=== PATIENT | female | born 1950 | race Caucasian/White ===

== ENCOUNTER 2016-06-27 14:16 | Inpatient (IN) | payer OTHER ==
[~2016-06-27] VITALS: Ht 165.1 cm; Wt 85.3 kg
--- NOTE | ~2016-06-27 | CON ---
[place], [place] REPORT OF CONSULTATION NAME: BRITTANIE WADE UNIT #: [id number] ROOM: 422 DOCTOR: WICHO KUMAR MD BIRTHDATE: [birth year] DOS: GASTROENDOSCOPIC REPORT HISTORY OF PRESENT ILLNESS: A 65-year-old patient, who was presented with multiple medical problems, among which was abdominal pain, left lower quadrant pain, requiring pain medication. She is concerned that she may have a history of Crohn's disease since she has been loosely told that she have Crohn's disease in the past. The patient has been on ciprofloxacin and pain medication, Dilaudid. Urine study has been negative. CT scan of the abdomen has shown diverticulosis and liver cyst. Labs on records have been reviewed. Her electrolytes have been balanced. CBC repeatedly white blood cell has been normal, H and H of 10 and 31. She is status post recent colonoscopy. The labs reviewed, left nephrolithiasis. PAST MEDICAL HISTORY: Noted sigmoid diverticulosis is known, liver cyst known. REVIEW OF SYSTEMS: No hematemesis, no hematochezia, no shortness of breath, no chest pain. No nausea, vomiting, diarrhea today. PHYSICAL EXAMINATION: VITAL SIGNS: Stable. HEENT: Head normocephalic, nontraumatic. Mouth and buccal mucosa benign. NECK: Supple, no thyromegaly. CHEST: Symmetric anatomy, equal expansion. HEART: Normal sinus rhythm, no gallop, no murmur. ABDOMEN: Soft. No hepato-organomegaly. Bowel sounds present. EXTREMITIES: No cyanosis, no pedal edema. NEUROLOGIC: Alert, oriented to time, place, person. IMPRESSION: Diverticulosis, abdominal pain, status post antibiotic therapy. No Crohn's colitis has been discovered on CT scan nor on colonoscopic assessment. PLAN AND DISCUSSION: Hyoscyamine 0.125 mg 1 every day, possibility of irritable bowel syndrome in presentation. She is eating regular diet and no adverse consequences as a result of such. Hopefully, the antispasmodic is going to help her along. Other adjunctive diagnosis as outlined above. Thank you very much indeed. [place], [place] REPORT OF CONSULTATION NAME: BRITTANIE WADE UNIT #: [id number] ROOM: 422 DOCTOR: WICHO KUMAR MD BIRTHDATE: [birth year] WICHO KUMAR MD CM:CONSTR:REPORT OF CONSULTATION 1258 07/01/16 0031 interface
--- NOTE | ~2016-06-27 | CON ---
[place], [place] REPORT OF CONSULTATION NAME: BRITTANIE WADE UNIT #: [id number] ROOM: 422 DOCTOR: JOSÉ HOGUEWICHO BIRTHDATE: [birth year] DOS: 06/29/2016 HISTORY OF PRESENT ILLNESS: A 65-year-old patient who has presented with ambiguous abdominal pain. Apparently, she has been investigated by Dr. Child, EGD and colonoscopy, hiatal hernia and gastritis has been noticed. Colonoscopy has not shown any evidence of Crohn's disease. Apparently, she has had a label of Crohn's on her and she used to be on Lialda. She tells me she has not been on the medication for the past 4 years. Routinely she has a bowel movement or 2 until this last week or so that she has not had a well feeling about her bowel movements. She is telling me that they are not as formed as they used to be. She had a panel of blood work done in [place] and white blood cell was 7, H and H of 12 and 37, differential essentially unremarkable borderline. Comprehensive metabolic panel, GFR greater than 60. Liver function tests normal. Amylase and lipase within normal limits. CT scan of the abdomen and pelvis was done. Sigmoid diverticulosis, cyst of the liver, unchanged density, adrenal gland adenoma, left nephrolithiasis, all has been recognized. H and H of 10 and 31. Reviewed CPK-MB enzymes, labs on records and H and H was reassessed. Hemoglobin A1c normal. PAST MEDICAL HISTORY: Adrenal adenoma, liver cyst recently on CT scan. Pre-diabetes, thyroid nodule, hiatal hernia, gastritis, diverticulosis, all have been recognized on recent studies. SOCIAL HISTORY: Past smoker. Nonalcohol consumer. FAMILY HISTORY: Noncontributory. ALLERGIES: MESALAMINE, I.E., ASACOL GAVE HER RASH. MEDICATIONS: She used to take Lialda. She says she has stopped taking that. PAST SURGICAL HISTORY: None. Limited to the endoscopic assessment of upper and lower abdomen last week. REVIEW OF SYSTEMS: HEENT: Denies double vision, blurred vision. RESPIRATORY: Denies shortness of breath. CARDIOVASCULAR: Denies acute chest pain. DIGESTIVE SYSTEM: Nonspecific changes in bowel habit. Nonspecific abdominal distress. She is very much fixed on the fact that "I have history of Crohn's." PHYSICAL EXAMINATION: VITAL SIGNS: Stable. HEENT: Head normocephalic, nontraumatic. Mouth and buccal mucosa benign. NECK: Supple, no thyromegaly. CHEST: Symmetric anatomy, equal expansion. No wheeze. No rhonchi. HEART: Normal sinus rhythm. No gallop, no murmur. ABDOMEN: Soft. No hepato-organomegaly. No rebound tenderness. Bowel sounds present. [place], [place] REPORT OF CONSULTATION NAME: BRITTANIE WADE UNIT #: [id number] ROOM: [facility] DOCTOR: WICHO KUMAR MD BIRTHDATE: [birth year] EXTREMITIES: No cyanosis, no pedal edema. NEUROLOGIC: Alert, oriented to time, place, person. Urine cultures are negative. Urinalysis with trace of blood in the urine. IMPRESSION: Left nephrolithiasis, history of diverticulosis, history of hiatal hernia, history of gastritis as identified above, history of recent esophagogastroduodenoscopy and colonoscopy and no evidence of Crohn's. PLAN AND DISCUSSION: I advised her to follow up with Dr. Child as an outpatient for further re-evaluation of symptomatology. WICHO KUMAR MD CM:CONSTR:REPORT OF CONSULTATION 1113 06/29/16 1514 interface
--- NOTE | ~2016-06-27 | PR ---
[place], [place] PROGRESS NOTE NAME: BRITTANIE WADE [facility] #: [id number] UNIT #: [id number] ROOM: 422 DOCTOR: SOHEILA YORK MD BIRTHDATE: [birth year] DOS: The patient who has been admitted to the hospital with pain in her abdomen with lower GI bleeding with some nausea and some fever, but the patient is feeling now better and gradually getting better. She is not having any bleeding right now in her stools, but she is still having some pain in the lower part of the abdomen, both in the suprapubic region and both in the right and left iliac fossa, but she is not having any nausea or vomiting. The patient is a known case of Crohn's disease and she was seen by Dr. Child. He did her EGD and also had colonoscopy done and he had biopsy. She is going to follow him from that point of view. She does not know what was the report of the biopsy. We are going to get that information from Dr. Child and the patient has been seen by Dr. Ortiz in that regard also and according to Dr. Ortiz, he thinks the patient is having diverticulosis now. The patient was not taking any medication for her Crohn's disease. The patient has past history of diverticulitis, left nephrolithiasis, lower GI bleed, and lymphopenia, past history of sepsis, past history of severe malnutrition, tachycardia, and recurring history of UTI. She is also having history of adrenal adenoma and Crohn's disease as stated before, degenerative arthritis. The patient had arthroscopy done in the past, hiatal hernia. Urine culture and sensitivity did not grow any bacteria. Basic metabolic profile is not showing any acute problem. Chloride is 108, calcium is 8.1. CBC showed hemoglobin 10.2, hematocrit 30.0, indicating hypochromic anemia and vitamin B12 levels total 70. Folic acid 12.50, they are both normal and her blood pressure is 140/82, pulse 88, respirations 16, temperature 98.8. Heart irregular. Chest: Clear. Abdomen: Having some tenderness in the suprapubic region, both right and left iliac fossa, but there is no rebound tenderness. The patient is gradually improving and will continue with the present treatment. SOHEILA YORK MD CM:PNGHULAM [id number] SOHEILA YORK MD 07/02/16 0656 interface
[~2016-06-27 14:16] MED LIST: AMBIEN10 M1 PO; AMBIEN5 MG PO; HYDROCODONE BIT1 T11 PO; KEFLEX500 MG PO; LIALDA1.2 GM PO; MACROBID100 M1; NAPROSYN500 MG PO; NKHM; PERCOCET 325 MG1 TA5 PO; VICODIN 5-3001 EACH PO
[2016-06-27 14:34] VITALS: BP 137/90
[2016-06-27] MEDS ORDERED: ZANTAC 150150 MG PO (14:39)
[2016-06-27] MEDS ORDERED: LAMISIL250 MG PO (14:39)
[2016-06-27] MEDS ORDERED: MACROBID100 M1 PO (14:39)
[2016-06-27 15:17] LABS: BASO % 0.4 % (0.0-1.0); EOS # 0.3 10*3/uL (0.0-0.4); EOS % 4.6 % (1.0-4.0); HEMATOCRIT 37.5 % (37.0-47.0); HEMOGLOBIN 12.5 g/dl (12.0-16.0); LYMPH % 13.3 % (27.0-41.0); MEAN CELL VOLUME 88.2 fl (81.0-99.0); MEAN CORPUSCULAR HGB 29.4 pg (27.0-31.0); MEAN CORPUSCULAR HGB CONC 33.3 g/dl (33.0-37.0); MEAN PLATELET VOLUME 8.9 fl (9.6-12.3); MONO # 0.7 10*3/uL (0.1-1.0); MONO % 9.1 % (3.0-9.0); NEUT # 5.4 10*3/uL (2.3-7.9); NEUT % 72.2 % (47.0-73.0); PLATELET COUNT AUTOMATED 353 10*3/uL (130-400); RED BLOOD COUNT 4.25 10*6/uL (4.10-5.10); RED CELL DISTRI WIDTH 12.6 % (0-14.5); WHITE BLOOD COUNT 7.4 10*3/uL (4.8-10.8)
[2016-06-27 15:34] LABS: ALBUMIN 3.2 gm/dl (3.1-4.5); ALKALINE PHOSPHATASE 80 U/L (45-117); BILIRUBIN, TOTAL 0.4 mg/dl (0.2-1.0); BUN 7 mg/dl (7-24); CARBON DIOXIDE 28 mmol/L (21-32); CHLORIDE 101 mmol/L (98-107); EST GLOM FILT AFRICAN AMERICAN > 60 ml/min; GLUCOSE 89 mg/dL (65-99); POTASSIUM 4.1 mmol/L (3.5-5.1); SGOT/AST 10 IU/L (3-35); SGPT/ALT 13 U/L (12-78); SODIUM 136 mmol/L (136-145); TOTAL PROTEIN 7.5 gm/dL (6.4-8.2)
[2016-06-27 15:36] LABS: TROPONIN I < 0.015 ng/ml (<0.045)
[2016-06-27 16:05] VITALS: BP 132/86
[2016-06-27 16:09] LABS: BILIRUBIN NEGATIVE (NEGATIVE); BLOOD TRACE-INTACT (NEGATIVE); CLARITY SL CLOUDY (CLEAR); COLOR YELLOW (YELLOW); GLUCOSE NEGATIVE (NEGATIVE); KETONE 2+ (NEGATIVE); LEUKO ESTERASE 1+ (NEGATIVE); NITRITE NEGATIVE (NEGATIVE); PROTEIN NEGATIVE (NEGATIVE); SPECIFIC GRAVITY <= 1.005 (1.005-1.030); UROBILINOGEN 0.2 E.U./dl (0.2-1.0)
[2016-06-27 16:17] LABS: BACTERIA 1+; EPITHELIAL CELLS 0-2; RBC 0-2 rbc/hpf (0-2); URINE REFLEX COMMENT YES (NO)
[2016-06-27 17:58] VITALS: BP 132/92
[2016-06-27 18:13] LABS: CPK 18 U/L (26-192)
[2016-06-27 18:14] LABS: CKMB < 0.5 ng/ml (0.5-3.6); TROPONIN I < 0.015 ng/ml (<0.045)
[2016-06-27 20:00] VITALS: BP 141/84
[2016-06-28] VITALS: BP 120/75
[2016-06-28 00:27] LABS: HEMOGLOBIN 10.5 g/dl (12.0-16.0)
[2016-06-28 00:28] LABS: HEMATOCRIT 31.1 % (37.0-47.0)
[2016-06-28 00:44] LABS: CPK 19 U/L (26-192)
[2016-06-28 00:45] LABS: CKMB < 0.5 ng/ml (0.5-3.6); TROPONIN I < 0.015 ng/ml (<0.045)
[2016-06-28 06:30] LABS: BASO % 0.4 % (0.0-1.0); EOS # 0.5 10*3/uL (0.0-0.4); EOS % 8.3 % (1.0-4.0); HEMATOCRIT 31.8 % (37.0-47.0); HEMOGLOBIN 10.5 g/dl (12.0-16.0); LYMPH # 0.8 10*3/uL (1.3-4.4); LYMPH % 15.1 % (27.0-41.0); MEAN CELL VOLUME 88.8 fl (81.0-99.0); MEAN CORPUSCULAR HGB 29.3 pg (27.0-31.0); MEAN PLATELET VOLUME 8.9 fl (9.6-12.3); MONO # 0.7 10*3/uL (0.1-1.0); MONO % 12.1 % (3.0-9.0); NEUT # 3.6 10*3/uL (2.3-7.9); NEUT % 63.7 % (47.0-73.0); PLATELET COUNT AUTOMATED 312 10*3/uL (130-400); RED BLOOD COUNT 3.58 10*6/uL (4.10-5.10); RED CELL DISTRI WIDTH 12.5 % (0-14.5); WHITE BLOOD COUNT 5.6 10*3/uL (4.8-10.8)
[2016-06-28 06:34] LABS: CPK 17 U/L (26-192)
[2016-06-28 06:35] LABS: CKMB < 0.5 ng/ml (0.5-3.6); TROPONIN I < 0.015 ng/ml (<0.045)
[2016-06-28 07:03] LABS: ALBUMIN 2.6 gm/dl (3.1-4.5); ALKALINE PHOSPHATASE 61 U/L (45-117); BILIRUBIN, TOTAL 0.2 mg/dl (0.2-1.0); BUN 7 mg/dl (7-24); CARBON DIOXIDE 25 mmol/L (21-32); CHLORIDE 108 mmol/L (98-107); CHOLESTEROL 141 mg/dL (<200); EST GLOM FILT AFRICAN AMERICAN > 60 ml/min; GLUCOSE 95 mg/dL (65-99); HDL CHOLESTEROL 43 mg/dl (40-60); LDL CHOLESTEROL 80 mg/dL (9-159); MAGNESIUM 2.1 mg/dL (1.5-2.1); POTASSIUM 4.1 mmol/L (3.5-5.1); SGOT/AST 6 IU/L (3-35); SGPT/ALT 9 U/L (12-78); SODIUM 141 mmol/L (136-145); TOTAL PROTEIN 6.1 gm/dL (6.4-8.2); TRIGLYCERIDES 92 mg/dl (<150); VLDL CHOLESTEROL 18 mg/dL (6-40)
[2016-06-28 07:10] LABS: PROTHROMBIN TIME 10.9 SECONDS (9.0-12.4)
[2016-06-28 08:00] VITALS: BP 126/80
[2016-06-28 08:07] LABS: VITAMIN D, 25-HYDROXY 21.8 ng/mL (30-100)
[2016-06-28 08:08] LABS: FOLIC ACID 12.5 ng/mL (>5.38)
[2016-06-28 12:00] VITALS: BP 116/96
[2016-06-28 16:00] VITALS: BP 132/79
[2016-06-28 20:00] VITALS: BP 112/68
[2016-06-29] VITALS: BP 123/74
[2016-06-29 06:14] LABS: BASO % 0.5 % (0.0-1.0); EOS # 0.5 10*3/uL (0.0-0.4); EOS % 7.5 % (1.0-4.0); HEMOGLOBIN 10.2 g/dl (12.0-16.0); LYMPH # 1.5 10*3/uL (1.3-4.4); LYMPH % 25.8 % (27.0-41.0); MEAN CELL VOLUME 89.6 fl (81.0-99.0); MEAN CORPUSCULAR HGB 29.5 pg (27.0-31.0); MEAN CORPUSCULAR HGB CONC 32.9 g/dl (33.0-37.0); MEAN PLATELET VOLUME 8.7 fl (9.6-12.3); MONO # 0.8 10*3/uL (0.1-1.0); MONO % 12.6 % (3.0-9.0); NEUT # 3.2 10*3/uL (2.3-7.9); NEUT % 53.4 % (47.0-73.0); PLATELET COUNT AUTOMATED 312 10*3/uL (130-400); RED BLOOD COUNT 3.46 10*6/uL (4.10-5.10); RED CELL DISTRI WIDTH 12.7 % (0-14.5)
[2016-06-29 06:46] LABS: BUN 6 mg/dl (7-24); CARBON DIOXIDE 29 mmol/L (21-32); CHLORIDE 108 mmol/L (98-107); EST GLOM FILT AFRICAN AMERICAN > 60 ml/min; GLUCOSE 86 mg/dL (65-99); POTASSIUM 3.9 mmol/L (3.5-5.1); SODIUM 142 mmol/L (136-145)
[2016-06-29 08:00] VITALS: BP 132/82
[2016-06-29 12:00] VITALS: BP 98/84
[2016-06-29 16:00] VITALS: BP 130/86
[2016-06-29 20:00] VITALS: BP 135/81
[2016-06-30] VITALS: BP 134/81
[2016-06-30 08:00] VITALS: BP 140/82
[2016-06-30 12:00] VITALS: BP 140/90
[2016-06-30 16:00] VITALS: BP 126/88
[2016-06-30 20:00] VITALS: BP 132/86
[2016-07-01] VITALS: BP 131/79
[2016-07-01 06:33] LABS: BASO % 0.2 % (0.0-1.0); EOS # 0.4 10*3/uL (0.0-0.4); EOS % 4.6 % (1.0-4.0); HEMATOCRIT 32.9 % (37.0-47.0); HEMOGLOBIN 10.8 g/dl (12.0-16.0); LYMPH # 1.4 10*3/uL (1.3-4.4); LYMPH % 16.2 % (27.0-41.0); MEAN CELL VOLUME 87.7 fl (81.0-99.0); MEAN CORPUSCULAR HGB 28.8 pg (27.0-31.0); MEAN CORPUSCULAR HGB CONC 32.8 g/dl (33.0-37.0); MEAN PLATELET VOLUME 8.9 fl (9.6-12.3); MONO % 10.8 % (3.0-9.0); NEUT # 5.9 10*3/uL (2.3-7.9); NEUT % 67.9 % (47.0-73.0); PLATELET COUNT AUTOMATED 319 10*3/uL (130-400); RED BLOOD COUNT 3.75 10*6/uL (4.10-5.10); RED CELL DISTRI WIDTH 12.9 % (0-14.5); WHITE BLOOD COUNT 8.8 10*3/uL (4.8-10.8)
[2016-07-01 07:03] LABS: EST GLOM FILT AFRICAN AMERICAN > 60 ml/min
[2016-07-01 08:00] VITALS: BP 117/86
[2016-07-01 12:00] VITALS: BP 127/80
[2016-07-01 16:00] VITALS: BP 132/83
[2016-07-01 20:00] VITALS: BP 143/86
[2016-07-02 00:50] VITALS: BP 130/69
[2016-07-02 06:39] LABS: BILIRUBIN NEGATIVE (NEGATIVE); BLOOD TRACE-INTACT (NEGATIVE); CLARITY CLEAR (CLEAR); COLOR YELLOW (YELLOW); GLUCOSE NEGATIVE (NEGATIVE); KETONE NEGATIVE (NEGATIVE); LEUKO ESTERASE 1+ (NEGATIVE); NITRITE NEGATIVE (NEGATIVE); PROTEIN NEGATIVE (NEGATIVE); UROBILINOGEN 0.2 E.U./dl (0.2-1.0)
[2016-07-02 06:53] LABS: BACTERIA TRACE; EPITHELIAL CELLS 0-2; RBC 0-2 rbc/hpf (0-2)
[2016-07-02 06:54] LABS: URINE REFLEX COMMENT YES (NO)
[2016-07-02 08:00] VITALS: BP 138/89
[2016-07-02] MEDS ORDERED: AMITRIPTYLINE25 MG PO (11:08)
[2016-07-02] MEDS ORDERED: D-1000 185 MG-11 TAB PO (11:08)
[2016-07-02] MEDS ORDERED: HYOSCYAMINE0.375 M1 PO (11:08)
[2016-07-02] MEDS ORDERED: Anusol Hc,Anuco25 MG R (11:08)
[2016-07-02 12:00] VITALS: BP 138/91
[2016-07-02 16:00] VITALS: BP 135/93
== END 2016-07-02 16:57 | disposition home or self-care (01) | DRG 871 ==
LOC: ED 14:16 → 4E 16:21 → EDHOLD 16:21 → 4E 16:51
PROVIDERS: Emergency Medicine; Internal Medicine
DX: A41.9 Sepsis, unspecified organism (principal); E43 Unspecified severe protein-calorie malnutrition; K92.2 Gastrointestinal hemorrhage, unspecified; K50.919 Crohn's disease, unspecified, with unspecified complications; K76.89 Other specified diseases of liver; N30.11 Interstitial cystitis (chronic) with hematuria; R91.8 Other nonspecific abnormal finding of lung field; K57.30 Diverticulosis of large intestine without perforation or abscess without bleeding; N20.0 Calculus of kidney; D35.01 Benign neoplasm of right adrenal gland; R73.03 Prediabetes; K44.9 Diaphragmatic hernia without obstruction or gangrene; K64.8 Other hemorrhoids; Z87.891 Personal history of nicotine dependence; Z82.49 Family history of ischemic heart disease and other diseases of the circulatory system; Z68.31 Body mass index [BMI] 31.0-31.9, adult; Z80.1 Family history of malignant neoplasm of trachea, bronchus and lung; Z79.899 Other long term (current) drug therapy; Z88.8 Allergy status to other drugs, medicaments and biological substances

== ENCOUNTER → 2016-07-03 | Outpatient (CLI) | payer OTHER ==
[~2016-07-03] MED LIST changes: +AMITRIPTYLINE25 MG PO; +Anusol Hc,Anuco25 MG R; +D-1000 185 MG-11 TAB PO; +HYOSCYAMINE0.375 M1 PO; +LAMISIL250 MG PO; +MACROBID100 M1 PO; +ZANTAC 150150 MG PO
== END | disposition home or self-care (01) ==
LOC: US 11:42
DX: N30.10 Interstitial cystitis (chronic) without hematuria (principal); N83.8 Other noninflammatory disorders of ovary, fallopian tube and broad ligament; R10.9 Unspecified abdominal pain; R10.2 Pelvic and perineal pain

== ENCOUNTER → 2016-12-17 | Outpatient (CLI) | payer OTHER | END | disposition home or self-care (01) | LOC: MAMMO 14:39 | DX: Z12.31 Encounter for screening mammogram for malignant neoplasm of breast (principal) ==

== ENCOUNTER → 2017-05-23 | Outpatient (CLI) | payer OTHER | END | disposition home or self-care (01) | LOC: MRI 12:57 | DX: M47.896 Other spondylosis, lumbar region (principal); M50.20 Other cervical disc displacement, unspecified cervical region ==

== ENCOUNTER → 2017-12-30 | Outpatient (CLI) | payer OTHER | END | disposition home or self-care (01) | LOC: RAD 16:40 | DX: J44.1 Chronic obstructive pulmonary disease with (acute) exacerbation (principal) ==

== ENCOUNTER → 2018-03-31 | Outpatient (CLI) | payer OTHER ==
[~2018-03-31] MED LIST changes: +MESALAMINE
== END | disposition home or self-care (01) ==
LOC: US 13:30
DX: N39.0 Urinary tract infection, site not specified (principal)

== ENCOUNTER → 2018-10-06 | Outpatient (CLI) | payer OTHER | END | disposition home or self-care (01) | LOC: LAB 16:33 | DX: R53.83 Other fatigue (principal); Z98.890 Other specified postprocedural states ==

== ENCOUNTER → 2018-10-28 | Outpatient (CLI) | payer OTHER | END | disposition home or self-care (01) | LOC: US 12:30 | DX: R22.32 Localized swelling, mass and lump, left upper limb (principal) ==

== ENCOUNTER → 2019-05-20 | Outpatient (CLI) | payer OTHER | END | disposition home or self-care (01) | LOC: MRI 00:15 | DX: M67.432 Ganglion, left wrist (principal) ==

== ENCOUNTER → 2019-05-24 | Outpatient (CLI) | payer OTHER | END | disposition home or self-care (01) | LOC: CT 00:10 | DX: R91.1 Solitary pulmonary nodule (principal) ==

== ENCOUNTER → 2019-09-07 | Outpatient (CLI) | payer OTHER | END | disposition home or self-care (01) | LOC: MAMMO 07-12 14:00 | DX: Z12.31 Encounter for screening mammogram for malignant neoplasm of breast (principal) ==

== ENCOUNTER 2020-11-15 09:32 | Inpatient (IN) | payer OTHER ==
[~2020-11-15] VITALS: Ht 165.1 cm; Wt 80.8 kg
[2020-11-15 09:35] VITALS: BP 178/80
[2020-11-15 10:35] LABS: BASO % 0.2 % (0.0-1.0); EOS # 0.1 10*3/uL (0.0-0.4); EOS % 0.7 % (1.0-4.0); HEMATOCRIT 42.4 % (37.0-47.0); LYMPH # 1.4 10*3/uL (1.3-4.4); LYMPH % 16.9 % (27.0-41.0); MEAN CELL VOLUME 91.4 fl (81.0-99.0); MEAN CORPUSCULAR HGB 30.6 pg (27.0-31.0); MEAN CORPUSCULAR HGB CONC 33.5 g/dl (33.0-37.0); MEAN PLATELET VOLUME 9.6 fl (9.6-12.3); MONO # 0.5 10*3/uL (0.1-1.0); MONO % 5.6 % (3.0-9.0); NEUT # 6.4 10*3/uL (2.3-7.9); NEUT % 76.2 % (47.0-73.0); PLATELET COUNT AUTOMATED 260 10*3/uL (130-400); RED BLOOD COUNT 4.64 10*6/uL (4.10-5.10); RED CELL DISTRI WIDTH 12.6 % (0-14.5); WHITE BLOOD COUNT 8.4 10*3/uL (4.8-10.8)
[2020-11-15 10:54] LABS: ALBUMIN 3.5 gm/dl (3.1-4.5); ALKALINE PHOSPHATASE 71 U/L (45-117); BUN 15 mg/dl (7-24); CHLORIDE 107 mmol/L (98-107); CREATININE 0.97 mg/dL (0.55-1.02); LIPASE 188 U/L (73-393); POTASSIUM 4.1 mmol/L (3.5-5.1); SGOT/AST 12 IU/L (3-35); SGPT/ALT 19 U/L (12-78); SODIUM 139 mmol/L (136-145); TOTAL PROTEIN 7.1 gm/dL (6.4-8.2)
[2020-11-15 11:06] LABS: TROPONIN I < 0.015 ng/ml (<0.045)
[2020-11-15 12:00] VITALS: BP 107/75
[2020-11-15 17:29] LABS: BILIRUBIN Negative (Negative); BLOOD Trace-Intact (Negative); CLARITY Turbid (Clear); COLOR Yellow (Yellow); GLUCOSE Negative (Negative); KETONE Negative (Negative); LEUKO ESTERASE Trace (Negative); NITRITE Negative (Negative); SPECIFIC GRAVITY >= 1.030 (1.001-1.030); UROBILINOGEN 0.2 E.U./dl (0.0-1.0)
[2020-11-15 17:40] LABS: BACTERIA 4+; RBC 0-2 rbc/hpf (0-2)
[2020-11-15 18:30] VITALS: BP 111/66
[2020-11-15] MEDS ORDERED: ROPINIROLE HYD0.5 MG PO (19:25)
[2020-11-15] MEDS ORDERED: GOOD NEIGHBOR L10 MG PO (19:25)
[2020-11-15 20:40] VITALS: BP 121/71
[2020-11-15 23:21] VITALS: BP 123/69
[2020-11-16 00:40] VITALS: BP 107/75
[2020-11-16 07:04] LABS: BASO % 0.4 % (0.0-1.0); EOS # 0.2 10*3/uL (0.0-0.4); EOS % 2.6 % (1.0-4.0); HEMATOCRIT 37.3 % (37.0-47.0); LYMPH # 2.4 10*3/uL (1.3-4.4); LYMPH % 34.6 % (27.0-41.0); MEAN CELL VOLUME 91.6 fl (81.0-99.0); MEAN CORPUSCULAR HGB 30.2 pg (27.0-31.0); MONO # 0.6 10*3/uL (0.1-1.0); NEUT # 3.6 10*3/uL (2.3-7.9); NEUT % 53.3 % (47.0-73.0); PLATELET COUNT AUTOMATED 227 10*3/uL (130-400); RED BLOOD COUNT 4.07 10*6/uL (4.10-5.10); RED CELL DISTRI WIDTH 12.7 % (0-14.5); WHITE BLOOD COUNT 6.8 10*3/uL (4.8-10.8)
[2020-11-16 07:25] LABS: CHLORIDE 111 mmol/L (98-107); SODIUM 142 mmol/L (136-145)
[2020-11-16 07:31] LABS: BUN 7 mg/dl (7-24)
[2020-11-16 08:00] VITALS: BP 106/80
[2020-11-16 12:00] VITALS: BP 125/66
[2020-11-16 16:00] VITALS: BP 116/72
[2020-11-16 20:00] VITALS: BP 134/80
[2020-11-17] VITALS (9 sets, daily range): BP systolic 91–177; BP diastolic 40–93
[2020-11-17 06:30] LABS: BASO % 0.4 % (0.0-1.0); EOS # 0.3 10*3/uL (0.0-0.4); EOS % 3.6 % (1.0-4.0); HEMATOCRIT 36.9 % (37.0-47.0); LYMPH # 2.5 10*3/uL (1.3-4.4); LYMPH % 32.9 % (27.0-41.0); MEAN CORPUSCULAR HGB 30.5 pg (27.0-31.0); MEAN CORPUSCULAR HGB CONC 33.9 g/dl (33.0-37.0); MEAN PLATELET VOLUME 9.9 fl (9.6-12.3); MONO # 0.6 10*3/uL (0.1-1.0); MONO % 8.1 % (3.0-9.0); NEUT # 4.1 10*3/uL (2.3-7.9); NEUT % 54.9 % (47.0-73.0); PLATELET COUNT AUTOMATED 227 10*3/uL (130-400); RED CELL DISTRI WIDTH 12.3 % (0-14.5); WHITE BLOOD COUNT 7.5 10*3/uL (4.8-10.8)
[2020-11-17 06:54] LABS: BUN 10 mg/dl (7-24); CHLORIDE 109 mmol/L (98-107); CREATININE 0.76 mg/dL (0.55-1.02); POTASSIUM 3.8 mmol/L (3.5-5.1); SODIUM 139 mmol/L (136-145)
[2020-11-18] VITALS: BP 121/68
[2020-11-18 08:00] VITALS: BP 150/88
[2020-11-18 12:00] VITALS: BP 100/52
[2020-11-18] MEDS ORDERED: Motrin,Rufen800 MG PO (13:47)
== END 2020-11-18 15:45 | disposition home or self-care (01) | DRG 418 ==
LOC: ED 09:32 → 4E 16:10 → EDHOLD 16:10 → 4E 22:56
PROVIDERS: Emergency Medicine; Podiatrist Foot & Ankle Surgery; ADMIT Internal Medicine; ATTEND Internal Medicine
PROC: 0FT44ZZ Resection of Gallbladder, Percutaneous Endoscopic Approach (ICD-10-PCS; principal; 2020-11-17)
DX: K80.00 Calculus of gallbladder with acute cholecystitis without obstruction (principal); K50.90 Crohn's disease, unspecified, without complications; N39.0 Urinary tract infection, site not specified; N20.0 Calculus of kidney; R91.8 Other nonspecific abnormal finding of lung field; D35.01 Benign neoplasm of right adrenal gland; Z88.8 Allergy status to other drugs, medicaments and biological substances; Z87.891 Personal history of nicotine dependence; Z82.49 Family history of ischemic heart disease and other diseases of the circulatory system; Z80.1 Family history of malignant neoplasm of trachea, bronchus and lung; Z79.899 Other long term (current) drug therapy

== ENCOUNTER → 2020-12-18 | Outpatient (CLI) | payer OTHER ==
[~2020-12-18] MED LIST changes: +GOOD NEIGHBOR L10 MG PO; +Motrin,Rufen800 MG PO; +ROPINIROLE HYD0.5 MG PO
[2020-12-22 03:06] LABS: ALDOSTERONE, SERUM 16.7 ng/dL (0.0-30.0)
[2020-12-23 13:06] LABS: ALDOSTERONE/RENIN RATIO 16.4 (0.0-30.0); RENIN ACTIVITY (PLASMA) 1.019 ng/mL/hr (0.167-5.380)
[2020-12-25 02:06] LABS: METANEPHRINE, PLASMA 22.8 pg/mL (0.0-88.0); NORMETANEPHRINE, PLASMA 75.1 pg/mL (0.0-191.8)
== END | disposition home or self-care (01) ==
LOC: LAB 00:16 → MAMMO 09:00
PROVIDERS: ATTEND Internal Medicine Nephrology
DX: Z12.31 Encounter for screening mammogram for malignant neoplasm of breast (principal); D35.01 Benign neoplasm of right adrenal gland

== ENCOUNTER → 2021-05-29 | Outpatient (CLI) | payer OTHER | END | disposition home or self-care (01) | LOC: CT 11:00 | PROVIDERS: ATTEND Internal Medicine Critical Care Medicine | DX: R91.8 Other nonspecific abnormal finding of lung field (principal); I25.10 Atherosclerotic heart disease of native coronary artery without angina pectoris; E27.8 Other specified disorders of adrenal gland; J45.20 Mild intermittent asthma, uncomplicated; G25.81 Restless legs syndrome; R06.83 Snoring; J30.89 Other allergic rhinitis; Z72.821 Inadequate sleep hygiene; Z87.891 Personal history of nicotine dependence ==

== ENCOUNTER → 2022-06-24 | Outpatient (CLI) | payer OTHER | END | disposition home or self-care (01) | LOC: MAMMO 00:27 | PROVIDERS: ATTEND Internal Medicine | DX: Z12.31 Encounter for screening mammogram for malignant neoplasm of breast (principal); Z13.820 Encounter for screening for osteoporosis; R92.1 Mammographic calcification found on diagnostic imaging of breast; N95.1 Menopausal and female climacteric states; M85.88 Other specified disorders of bone density and structure, other site ==

== ENCOUNTER → 2023-05-29 | Outpatient (CLI) | payer OTHER ==
[2023-05-29 14:07] LABS: ALKALINE PHOSPHATASE 72 U/L (46-116); BUN 16 mg/dl (9-23); CHLORIDE 108 mmol/L (98-107); POTASSIUM 4.8 mmol/L (3.4-5.1); SGPT/ALT 11 U/L (5-49); TOTAL PROTEIN 7.2 gm/dL (6.0-8.0)
== END | disposition home or self-care (01) ==
LOC: LAB 13:10
PROVIDERS: ATTEND Orthopaedic Surgery
DX: M25.569 Pain in unspecified knee (principal); R53.83 Other fatigue

== ENCOUNTER 2023-06-07 12:10 | Emergency (ER) | payer OTHER ==
[~2023-06-07] VITALS: Ht 165.1 cm; Wt 74.8 kg
[2023-06-07 12:25] VITALS: BP 1132/84
== END 2023-06-07 13:47 | disposition home or self-care (01) ==
LOC: ED 12:10
DX: S01.01XA Laceration without foreign body of scalp, initial encounter (principal); Z88.8 Allergy status to other drugs, medicaments and biological substances; Z79.899 Other long term (current) drug therapy; Z98.51 Tubal ligation status; Z87.891 Personal history of nicotine dependence; W06.XXXA Fall from bed, initial encounter; Y93.89 Activity, other specified; Y92.89 Other specified places as the place of occurrence of the external cause; Y99.8 Other external cause status

== ENCOUNTER → 2023-07-03 | Outpatient (CLI) | payer OTHER | END | disposition home or self-care (01) | LOC: CT 01:12 | PROVIDERS: ATTEND Internal Medicine Critical Care Medicine | DX: R91.8 Other nonspecific abnormal finding of lung field (principal); I25.10 Atherosclerotic heart disease of native coronary artery without angina pectoris; E27.8 Other specified disorders of adrenal gland; Z87.891 Personal history of nicotine dependence ==

== ENCOUNTER → 2024-02-05 | Outpatient (CLI) | payer OTHER | END | disposition home or self-care (01) | LOC: MAMMO 00:54 | PROVIDERS: ATTEND Internal Medicine | DX: Z12.31 Encounter for screening mammogram for malignant neoplasm of breast (principal); R92.30 Dense breasts, unspecified ==

== ENCOUNTER → 2024-07-22 | Outpatient (CLI) | payer OTHER | END | disposition home or self-care (01) | LOC: CT 09:58 | PROVIDERS: ATTEND Internal Medicine Critical Care Medicine | DX: Z12.2 Encounter for screening for malignant neoplasm of respiratory organs (principal); R91.8 Other nonspecific abnormal finding of lung field; J45.20 Mild intermittent asthma, uncomplicated; I25.10 Atherosclerotic heart disease of native coronary artery without angina pectoris; J30.89 Other allergic rhinitis; Z80.1 Family history of malignant neoplasm of trachea, bronchus and lung; G25.81 Restless legs syndrome; Z72.821 Inadequate sleep hygiene; R06.83 Snoring; Z86.16 Personal history of COVID-19; F17.210 Nicotine dependence, cigarettes, uncomplicated ==